=== PATIENT | male | born 1950 | race Caucasian/White ===

== ENCOUNTER 2018-03-28 14:53 | Inpatient (IN) | payer OTHER ==
[2018-03-29] MEDS ORDERED: ACETAMINOPHEN 325 MG TAB PO PRN (15:30)
[2018-03-29] MEDS ORDERED: POLYETHYLENE GLYCOL 3350 17 GM PKT PO PRN (15:30)
[2018-03-29] MEDS ORDERED: SENNOSIDES 17.6 MG/10 ML UDL PO PRN (15:30)
[2018-03-29] MEDS ORDERED: ONDANSETRON 4 MG/2 ML VIAL IV PRN (15:51)
[2018-03-29] MEDS ORDERED: CEPACOL LOZENGE PO PRN (15:51)
[2018-03-29] MEDS ORDERED: LORAZEPAM PO PRN (15:51)
[2018-03-29] MEDS ORDERED: DEXAMETHASONE 4 MG/ML VIAL PO SCH (16:00)
[2018-03-29] MEDS ORDERED: HYDROCODONE/APAP 5/325 TAB PO PRN (16:00)
[2018-03-29] MEDS ORDERED: LORazepam 1 MG TAB PO PRN (16:01)
[2018-03-29] MEDS: DEXAMETHASONE 4 MG TAB PO SCH ×2 (16:59→21:00)
[2018-03-29] MEDS: FAMOTIDINE 20 MG TAB PO SCH (20:51)
[2018-03-29] MEDS: ENALAPRIL MALEATE 5 MG TAB PO SCH (20:51)
[2018-03-29] MEDS: levETIRAcetam 500 MG TAB PO SCH (20:51)
[2018-03-29] MEDS: HEPARIN 5,000 UNIT/0.5 ML INJ SC SCH (20:52)
[2018-03-29] MEDS ORDERED: SENNOSIDES/DOCUSATE SODIUM TAB PO SCH (21:00)
[2018-03-29] MEDS ORDERED: ENALAPRIL MALEATE 10 MG TAB PO SCH (21:00)
[2018-03-30] MEDS: DEXAMETHASONE 4 MG TAB PO SCH ×4 (04:44→21:36)
[2018-03-30] MEDS: POLYETHYLENE GLYCOL 3350 17 GM PKT PO SCH (08:08)
[2018-03-30] MEDS: levETIRAcetam 500 MG TAB PO SCH ×2 (08:10→21:11)
[2018-03-30] MEDS: FAMOTIDINE 20 MG TAB PO SCH ×2 (08:10→21:11)
[2018-03-30] MEDS: ENALAPRIL MALEATE 5 MG TAB PO SCH ×2 (08:10→21:11)
[2018-03-30] MEDS: HEPARIN 5,000 UNIT/0.5 ML INJ SC SCH ×2 (10:32→21:16)
--- NOTE | 2018-03-30 10:36 | PDOREHIP ---
Admission [facility] - Admission - 3 Day Assessment Period Admission Date/Day 1: 03/29/18 Day 2: 03/30/18 Day 3: 03/31/18 - Active Diagnoses Comorbidities and Co-existing Conditions at Admission: 20274. None of the Above - Skin Conditions Unhealed Pressure Ulcer (1 or more/Stage 1 or >)-Admission: 0. No
[2018-03-30 11:19] LABS: PLATELET COUNT 267 10^3/uL (150-400)
--- NOTE | 2018-03-30 12:49 | GHP ---
[f rep st] HISTORY AND PHYSICAL DATE OF ADMISSION: 03/29/2018 REFERRING FACILITY: [facility]. REFERRING PHYSICIAN: Ken Ocampo MD CONSULTANTS: Oncology, Medicine IMPAIRMENT GROUP: 2.1. DATE OF ONSET: 03/20/2018. INPATIENT REHABILITATION HISTORY AND PHYSICAL AND POSTADMISSION PHYSICAL EVALUATION REHABILITATION DIAGNOSIS: Metastatic Melanoma to the brain, Intraparenchymal hemorrhage . ETIOLOGIC DIAGNOSIS: Nontraumatic brain dysfunction. DATE OF SURGERY: 03/25/2018. HISTORY OF PRESENT ILLNESS: The patient is a 67-year-old male who presented to the emergency room on , 03/20/2018, with concern of slurred speech and drooling. He had noted that he had started having some abnormal speech and slurring over the night before. He went to bed and slept well, but upon waking up and going to the bathroom the next morning, he did notice that he did have right facial droop. He did not have any other associated symptoms such as pain or headache. He also did note that his right hand was more clumsy than it had been before, but just slightly. He did go to work that next morning, and secondary to his ongoing dysarthria as well as mild aphasia and the right-sided facial droop, his coworkers did urge him to go to the emergency department. He did report to the emergency department on 03/20/2018 and was evaluated including a CT of the head, which did show a 2.8 x 2.6 mass in the left frontal lobe with surrounding edema and surrounding parenchymal hemorrhage overlying that location. The patient also had an MRI of the brain with and without contrast, which demonstrated a small hemorrhagic rim-enhancing left frontal lobe lesion compatible with metastasis. A larger left frontal lobe intracerebral hematoma without intralesional enhancement, which is presumably the scarring underlying small metastasis, associated moderate adjacent vasogenic edema with a small amount of adjacent subarachnoid hemorrhage. Very mild supratentorial white matter disease, which is presumably chronic microvascular ischemic gliosis. The patient also did have, on the same day, a CTA of the head and neck, which did demonstrate a high grade stenosis versus occlusion of the proximal right vertebral artery with the remainder of the right vertebral artery widely patent. The bilateral carotid bulb calcification without significant stenosis. No intracranial vascular occlusions. There was, as noted before, a left frontal lobe mass. The patient was taken to the ICU and monitored in this time period. He did not have significant medical complications during this timeframe and was consulted by Dr. Jaron Ocampo, neurosurgeon. A stroke alert was called in at his initial evaluation, although at this time unclear to understand if this was secondary to a true stroke versus secondary to the lesion that he has in the brain. Of note, he did notice that in the last 1 month, in further discussion, that potentially he had slight difficulty with coordination, specifically more in his right hand and potentially in his right foot, although this was not happening at the time of admission. He does have a significant smoking history as well as baseline hypertension. Neurosurgery did evaluate him and did start him on Keppra as well as dexamethasone to provide support for the intracranial edema that he did have. He was also seen by Medicine, who completed a metastatic workup including a CT of the chest, abdomen, and pelvis and was found to have a lung lesion that they were unable to biopsy. Given the availability of the cranial lesion, Oncology, who was also consulted, recommended biopsy of the cranial lesion. He was taken to the OR on 03/25 for evacuation of the clot, biopsy and resection of the suspected metastatic melanoma. He tolerated the procedure well. Pathology finalized consistent with necrotic metastatic melanoma. He has an additional small 2nd intracranial lesion as well that was not resected given its very small size. Postoperatively, he was placed in the ICU for close monitoring, and postop CT showed expected postop changes. He was in good condition and did have some typical postoperative brain swelling resulting in a slightly weak and clumsy right hand that seemed better on postoperative day 4 and currently leaving him on high-dose steroids. He was transferred out of the ICU to the floor and was seen by PT and OT and cleared for discharge to our facility on 03/29. He was okay for DVT prophylaxis. He will remain on Keppra b.i.d. until he is followed up. He will be on a slow 2-week Decadron taper to off. He will also follow up 2 weeks postop for wound check and staple removal. He will need an Oncology followup as well. STUDIES AND LABS: The patient did demonstrate a pathology consistent with metastatic melanoma with regard to the brain biopsy. He did have initial normal labs including a normal white blood cell count, a normal hemoglobin and hematocrit, a normal platelet as well as a normal BMP as well as normal coag values PRECAUTIONS: Aspiration, fall risk, seizure. ACTIVE COMORBIDITIES: Tier 3 right-sided hemiparesis. PAST MEDICAL HISTORY: 1. Hypertension. 2. Melanoma, status post resection of upper back via Mohs surgery 1 year ago. 3. Basal cell carcinoma excision from frontal scalp. 4. Hypercholesterolemia. PAST SURGICAL HISTORY: As mentioned above. Also inclusive of a left frontal craniotomy status post evacuation of clot, resection of suspected metastatic melanoma. PREHOSPITAL MEDICATIONS: 1. Aspirin. 2. Avalide 300/12.5 mg. 3. Zantac. 4. Multivitamin. ALLERGIES: Codeine. ADMISSION MEDICATIONS: 1. Tylenol 650 mg p.o. q.4 hours p.r.n. pain or fever. 2. Ardara 5/325 mg 1 tablet p.o. q.5 hours p.r.n. pain. 3. Librium 10 mg p.o. q.h.s. p.r.n. anxiety or alcohol withdrawal. 4. Decadron 4 mg p.o. q.6 hours and will continue to taper this over the next 2 weeks until off. 5. Enalapril 10 mg p.o. b.i.d. 6. Famotidine 20 mg p.o. b.i.d. 7. Heparin subcutaneous injection 5000 units q.12 hours. 8. Keppra 500 mg p.o. b.i.d. 9. Ativan 1 to 2 mg p.o. q.4 hours p.r.n. anxiety. 10. Zofran 4 mg IV q.4 hours p.r.n. nausea. 11. MiraLAX 17 g p.o. daily p.r.n. constipation. 12. MiraLAX 17 g p.o. daily scheduled. 13. Senna 1 to 2 tablets p.o. b.i.d. p.r.n. constipation. 14. Cepacol lozenge 1 tablet p.o. q.15 minutes p.r.n. sore throat. PSYCHOSOCIAL HISTORY: The patient was living alone. He reports that his children are . He was working full-time. He did smoke at least 3/4 to 1 pack of cigarettes per day and did drink several vodka tonics daily. FAMILY HISTORY: Per patient, no significant family history. REVIEW OF SYSTEMS: Negative other than what has been mentioned already in the HPI. PHYSICAL EXAMINATION: VITAL SIGNS: Blood pressure 156/94, temperature 36.6 degrees Celsius, heart rate 42, respiratory rate 14, 96% on room air. GENERAL: The patient appears as a healthy male. He is in no apparent distress on admission evaluation. HEENT: The patient does have obvious right-sided facial droop. He also does struggle with achieving full right-sided lateral gaze. His peripheral vision is intact to confrontation. He also has a slightly right- sided deviation of the tongue. His mucous membranes are moist. He has good range of motion with his neck. CV: Bradycardic although patient is asymptomatic, and per evaluation on the outside, from the notes did appear to also have bradycardia. CHEST: Clear to auscultation bilaterally. ABDOMEN: Soft, nontender, nondistended. PSYCH: Euthymic. SKIN: No obvious areas of skin breakdown upon evaluation. MSK: No pain to palpation over the joints and patient with full range of motion. NEURO: Patient is alert and oriented. He is able to carry on a basic conversation although does have obvious dysarthria and potentially some baseline aphasia. He does have right facial weakness with difficulty elevating the right side of his face during smile and puffing out his cheeks. He does have right upper extremity weakness more distal than he does proximal as well as dis-coordination through the fingers as well as the right heel to nation. Right lower extremity seems to have 4+/5 to 5/5 strength. RUE 4/5 delts, 4+/5 biceps, 4+/5 biceps, 4/5 we, 2/5 finger abduction, 4-/5 finger flexion. Extemities - no tenderness to palpation over bilateral calves - no associated swelling nor redness PRIOR LEVEL OF FUNCTIONING: The patient was functioning independently including driving as well as working full-time. CURRENT LEVEL OF FUNCTION: The patient is requiring contact guard to min assist for transfers both to the toilet as well as shower tub transfers. He is ambulating although still requiring contact guard to min assist with a front- wheeled walker. He is demonstrating dysarthric communication as well as mild cognitive deficit. The patient has demonstrated impulsiveness and safety deficits, specifically with functional mobility. He also is requiring contact guard assist for his ADLs including grooming. He has, up until now, remained continent with his bowel and bladder and we will continue to assess. There are no current functional changes from this preadmission screen based on the current exam. The patient is expected to achieve independence with eating, grooming, dressing, and bathing. Also independence with bed mobility, transfers , and ambulation with a least restrictive device on all level and unlevel surfaces. He will also demonstrate decreased impulsivity and be safe to negotiate the environment with our goal to discharge back to home with supportive services if needed. IMPRESSION: The patient is a 67-year-old male who was found to have a metastatic melanoma brain lesion, status post resection although did demonstrate other smaller lesions that were unable to be resected. He also did have associated postoperative changes such as swelling as well as intraparenchymal hemorrhage secondary to the lesion. He lives alone and thus will benefit from an interdisciplinary rehabilitation team approach to provide ongoing benefit both from Speech, PT, OT, who will see the patient for 60 minutes per day for each discipline on 5-7 days per week with his expected duration of stay around 10-14 days. His goal is to return home with supportive services. It is expected that after discharge he will continue to benefit from outpatient occupational and speech therapy in the immediate although unclear the amount of needs he will have in the future given this metastatic presentation. PLAN: 1. The patient does have reduced balance, mobility as well as activities of daily living following the resection of his metastatic melanoma lesion in his left frontal area. He will benefit from intervention with PT and OT to optimize his mobility and functional status towards discharge home at a modified to independent level. 2. Dysarthria. The patient will benefit from speech therapy evaluation for both his language as well as his cognitive function. He hopes to return back to work, although this will likely be something to be evaluated in the future, although would be able to return back home safely is the discharge goal for now. 3. Dysphagia. The patient is currently on a modified diet. He will continue working with Speech Therapy for dietary upgrades in order to achieve a minimal level of restrictions at the time of discharge. 4. Somatic pain. The patient with some pain status post resection. He currently has Tylenol as well as Ardara on board for any pain that he might have. We will continue to monitor and adjust pain medications according to the pain that he represents. 5. Hypertension. The patient does have a history of hypertension. At home, he was on multiple medications, although coming to our hospital only on enalapril. We will continue his current dosing and titrate other medications as indicated. Would not want him going too high given the hemorrhagic concerns specifically as he already did have some intraparenchymal hemorrhage as a result of this lesion. Currently riding in a decent range at 130-140s, although again we will continue to titrate medications in order to have a little bit better control of his hypertension. 6. Bowel and bladder. The patient is reported to be currently continent. We will continue to monitor and potentially evaluate for bladder evacuation to assure that patient is not having any evidence of retention or other symptoms consistent with a neurogenic bowel or bladder. 7. Nicotine dependence. The patient was smoking 3/4 to 1 pack per day. At current, he does not have a nicotine replacement plan in place. We will continue to work with our correctional counselor/case manager as well as our team with regard to best management of his nicotine consumption in efforts to provide supportive care during his hospitalization. 8. History of significant alcohol intake. The patient was on librium during his acute hospital stay. He has not triggered use of this for several days. We will continue to monitor and again work with our correctional counselor/case manager and others who can provide supportive care in light of his new brain lesions and to avoid ongoing significant alcohol intake. 9. Prophylaxis. The patient is at a moderate risk for clots secondary to his recent surgical interventions as well as his cancer diagnosis. He will be quite mobile with our therapist and thus we will continue on the current dosing as prescribed from his neurosurgeon of heparin 5000 units b.i.d. We will continue to monitor for any evidence of bleeding, especially parenchymal hemorrhaging, although less likely given the timeframe from the recent surgical intervention. 10. Cerebral edema (perisurgical) The patient is currently on a decadron taper dose. He is currently on 4 mg q.i.d. although this will transition over to 4 mg t.i.d. x3 days and then 4 mg b.i.d. x2 days and then 2 mg b.i.d. x2 days and then 2 mg q.a.m. x3 days at which time it is completely stopped. This will be right around the time he is supposed to follow up with Dr. Ocampo for his suture removal in Dr. Ocampo's outpatient clinic. 11. Bradycardia - Pt currently asymptomatic - Per review of outside chart was also bradycardic to the 40's. Did call over on 03/30 and floor RN reports an EKG was completed showing sinus bradycardia with concern of RBBB. Will repeat EKG in the morning and also get thyroid studies. Pt unaware of this diagnosis now or from before. Will monitor closely. Will engage pharmacy but haven't identified obvious medications that would be contributing. FOLLOWUP: The patient will need follow up with Dr. Ocampo. As per their documentation, should be in around 2 weeks' timeframe for both postsurgical evaluation as well as staple removal. He will also need follow up with an oncologist, and at this point, it is unclear if a referral has been sent, although patient was known to have melanoma from prior as he did have a Mohs surgery for removal 1 year ago. He might likely already have oncological resources. We will need to explore this further to assure that patient does have the right resources at the time of discharge. He will also need to follow up with his primary care provider for ongoing medical support as well as support of his hypertension at time of discharge. /[id number]/MODL MTDD
[2018-03-31] MEDS: levETIRAcetam 500 MG TAB PO SCH ×2 (08:34→20:18)
[2018-03-31] MEDS: FAMOTIDINE 20 MG TAB PO SCH ×2 (08:34→20:18)
[2018-03-31] MEDS: DEXAMETHASONE 4 MG TAB PO SCH ×3 (08:34→21:25)
[2018-03-31] MEDS: HEPARIN 5,000 UNIT/0.5 ML INJ SC SCH ×2 (08:35→20:18)
[2018-03-31] MEDS: ENALAPRIL MALEATE 5 MG TAB PO SCH ×2 (08:35→20:18)
[2018-03-31] MEDS: POLYETHYLENE GLYCOL 3350 17 GM PKT PO SCH (08:41)
--- NOTE | 2018-03-31 12:07 | SOAPPROG ---
SOAP Progress Note Assessment/Plan: Assessment: 67-year-old man with metastatic melanoma to brain, status post craniotomy and excision of left frontal lobe mass on 03/25/2018. * Deficits to balance mobility and activities of daily living. PT and OT to optimize his mobility and functional status towards discharge home at the modified independent level. * Dysarthria. CAR VARNISHER to address articulation of speech as well as cognitive function. Hope to return to work. * Dysphagia. Continue dysphagia 2 diet with thin liquids. Continue CAR VARNISHER. * Bradycardia. This is asymptomatic. She is not on any medications that promote bradycardia. EKG reportedly showed sinus bradycardia in the hospital. Repeat EKG is pending today, 03/31/2018. * Pain management. Denies pain currently. Not using hydrocodone or acetaminophen. * Jenny surgical cerebral edema. Continue dexamethasone taper for a total of 12 days. * Smoking history. He is not on next during replacement and currently denies craving for tobacco. * History of alcohol use disorder. He may need support upon discharge to reduce the likelihood of relapse. * Concern regarding dyslipidemia. Get labs from his primary care provider. Will have further discussion regarding his risk for coronary artery disease. May not make a decision regarding statin use until he knows more about his prognosis with metastatic melanoma. * Prophylaxis. He is at elevated risk for DVT due to solid tumor and reduced mobility. Continue heparin 5000 units subcutaneous three times daily until his mobility is considerably improved. Follow-up. He will see Dr. Cade, neurosurgeon, for postsurgical evaluation and staple removal approximately 2 weeks post surgery or approximately 2017. He will need follow-up with Oncology. His primary care provider is Dr. Henry Hess in [place]. 03/31/18 12:07 Subjective: No complaints. Slept well. Says he has no symptoms from his slow heart rate. Not in pain. Denies tobacco craving. Objective: Vital Signs Temp Pulse Resp BP Pulse Ox 36.8 C 40 L 17 146/81 H 97 03/31/18 08:00 03/31/18 08:00 03/31/18 08:00 03/31/18 08:00 03/31/18 08:00 Laboratory Results 03/30/18 06:00 03/30/18 06:00 03/30/18 03/31/18 04/01/18 05:59 05:59 05:59 Intake Total 250 1010 360 Output Total 023 8534 150 Balance -625 -115 210 Physical Exam - Physical Exam General Appearance: WD/WN, alert, no apparent distress Respiratory: normal breath sounds, No crackles, No rhonchi, No wheezing Cardiac/Chest: regular rate, rhythm, edema (1+ bilateral pretibial), bradycardia , No diastolic murmur, No systolic murmur Skin: normal color, warm/dry (Incision with sutures, well-approximated, no drainage, no erythema.) Extremities: No calf tenderness Neuro/Psych: alert, normal mood/affect, oriented x 3, facial droop, motor weakness (Right hand.), speech abnormalities (Moderate dysarthria.) ICD10 Worksheet Patient Problems: Problems Problem Status Onset Brain tumor Acute History of basal cell carcinoma Acute History of basal cell carcinoma Acute Hypercholesteremia Acute Hypertension Acute Intraparenchymal hematoma of brain Acute Melanoma Acute
--- NOTE | 2018-03-31 16:09 | CPEKG ---
Heart Rate: 44 RR Interval: 1364 P-R Interval: 128 QRSD Interval: 142 QT Interval: 508 QTC Interval: 435 P [place]: 47 QRS [place]: 72 T Wave [place]: 56 EKG Severity - ABNORMAL ECG - EKG Impression: SINUS BRADYCARDIA EKG Impression: RIGHT BUNDLE BRANCH BLOCK Electronically Signed By: Amrik Cummings 01-Apr-2018 11:14:24
[2018-04-01] MEDS: levETIRAcetam 500 MG TAB PO SCH ×2 (09:48→21:58)
[2018-04-01] MEDS: FAMOTIDINE 20 MG TAB PO SCH ×2 (09:48→21:58)
[2018-04-01] MEDS: HEPARIN 5,000 UNIT/0.5 ML INJ SC SCH (09:49)
[2018-04-01] MEDS: DEXAMETHASONE 4 MG TAB PO SCH ×3 (09:49→21:58)
[2018-04-01] MEDS: ENALAPRIL MALEATE 5 MG TAB PO SCH ×2 (09:49→21:58)
[2018-04-01] MEDS: POLYETHYLENE GLYCOL 3350 17 GM PKT PO SCH (09:49)
--- NOTE | 2018-04-01 14:30 | SOAPPROG ---
SOAP Progress Note Assessment/Plan: Assessment: 67-year-old man with metastatic melanoma to brain, status post craniotomy and excision of left frontal lobe mass on 03/25/2018. * Deficits to balance, mobility and activities of daily living. * Walking 300' or more with trekking pole, SBA. Increasingly independent with ADLs. * Continue PT and OT to optimize his mobility and functional status towards discharge home at the modified independent level. * Dysarthria. ECOSYSTEM ECOLOGY PROFESSOR to address articulation of speech as well as cognitive function. Hope to return to work. * Dysphagia. Continue dysphagia 3 diet with thin liquids. Continue ECOSYSTEM ECOLOGY PROFESSOR. * Bradycardia. This is asymptomatic. He is not on any medications that promote bradycardia. EKG reportedly showed sinus bradycardia in the hospital. Repeat EKG 03/31/2018 with sinus bradycardia and RBBB. TSH and free T4 wnl. * Discussed with scalehouse attendant Dr. Washburn, 04/01/2018. He advises no further evaluation or treatment at present. * Dyslipidemia. Hypertensive smoker. 10 year cardiovascular risk is 24%. Should be on moderate to high intensity statin. * Will start aspirin 81 mg q.day on 04/02/2018 as heparin is discontinuing. * Patient will discuss whether purse to proceed with statin therapy with his primary care doctor after discharge.. * Pain management. Denies pain currently. Not using hydrocodone or acetaminophen. * Jenny surgical cerebral edema. Continue dexamethasone taper for a total of 12 days, through 04/09/2018. * Smoking history. He is not on next during replacement and currently denies craving for tobacco. * History of alcohol use disorder. He may need support upon discharge to reduce the likelihood of relapse. * Concern regarding dyslipidemia. Get labs from his primary care provider. Will have further discussion regarding his risk for coronary artery disease. May not make a decision regarding statin use until he knows more about his prognosis with metastatic melanoma. * Prophylaxis. Mobility is much improved. Will discontinue subcutaneous heparin 04/01/2018. Follow-up. He will see Dr. Cade, neurosurgeon, for postsurgical evaluation and staple removal approximately 2 weeks post surgery or approximately 2017. He will need follow-up with Oncology. His primary care provider is Dr. Henry Hess in [place]. 04/01/18 16:02 Subjective: Denies any symptoms of bradycardia. Denies pain, headache, vision change, nausea or vomiting. Slept very well. Reports poor coordination of the right hand. Otherwise without complaints. Objective: Vital Signs Temp Pulse Resp BP Pulse Ox 36.7 C 40 L 15 117/60 96 04/01/18 05:52 04/01/18 05:52 04/01/18 05:52 04/01/18 09:49 04/01/18 05:52 Laboratory Results 03/30/18 06:00 03/30/18 06:00 03/31/18 04/01/18 04/02/18 05:59 05:59 05:59 Intake Total 1010 1130 510 Output Total 1125 1750 250 Balance -115 -620 260 - Time Spent With Patient Time Spent With Patient: Greater than 35 min floor time today, including record review regarding prior EKG and lipid panel done per primary care provider, phone discussion with scalehouse attendant Dr. Washburn, and counseling patient. Physical Exam - Physical Exam General Appearance: WD/WN, alert, no apparent distress Respiratory: normal breath sounds, No crackles, No rhonchi, No wheezing Cardiac/Chest: regular rate, rhythm, tachycardia, No edema, No diastolic murmur , No systolic murmur Skin: normal color, warm/dry Neuro/Psych: alert, normal mood/affect, oriented x 3, facial droop (Right-sided) , motor weakness (Right upper extremity ataxia.), speech abnormalities (Mild dysarthria) ICD10 Worksheet Patient Problems: Problems Problem Status Onset Brain tumor Acute History of basal cell carcinoma Acute History of basal cell carcinoma Acute Hypercholesteremia Acute Hypertension Acute Intraparenchymal hematoma of brain Acute Melanoma Acute
[2018-04-02] MEDS: ASPIRIN EC 81 MG TAB PO SCH (08:31)
[2018-04-02] MEDS: ENALAPRIL MALEATE 5 MG TAB PO SCH (08:32)
[2018-04-02] MEDS: POLYETHYLENE GLYCOL 3350 17 GM PKT PO SCH (08:32)
[2018-04-02] MEDS: levETIRAcetam 500 MG TAB PO SCH ×2 (08:32→21:55)
[2018-04-02] MEDS: DEXAMETHASONE 4 MG TAB PO SCH ×3 (08:32→21:55)
[2018-04-02] MEDS: FAMOTIDINE 20 MG TAB PO SCH ×2 (08:32→21:55)
[2018-04-02] MEDS ORDERED: ENALAPRIL MALEATE 10 MG TAB PO ONE (09:18)
[2018-04-02] MEDS: ENALAPRIL MALEATE 5 MG TAB PO ONE ×2 (10:37→10:48)
--- NOTE | 2018-04-02 11:57 | SOAPPROG ---
SOAP Progress Note Assessment/Plan: Assessment: 67-year-old man with metastatic melanoma to brain, status post craniotomy and excision of left frontal lobe mass on 03/25/2018. * Deficits to balance, mobility and activities of daily living. * Initial functional independence measure 97 on 04/02/2018. Has been independent in his room. Advancing today, 04/02/2018 to independent on the unit , using a tracking pole. Continues to have right upper extremity weakness and a right hemineglect; advised to not drive. Scored 51/56 on the [employer] balance inventory. Independent with activities of daily living. OT focusing on coordination and dexterity of the right hand. * Continue PT and OT to optimize his mobility and functional status towards discharge home at the modified independent level. * Dysarthria, dysphagia. Due to right facial weakness. Continue dysphagia 3 diet with thin liquids. Continue [employer]. * Cognitive impairment, mild, executive function deficit. Continue [employer]. * Bradycardia. This is asymptomatic. He is not on any medications that promote bradycardia. EKG reportedly showed sinus bradycardia in the hospital. Repeat EKG 03/31/2018 with sinus bradycardia and RBBB. TSH and free T4 wnl. * Discussed with finisher denture Dr. Washburn, 04/01/2018. He advises no further evaluation or treatment at present. * Dyslipidemia. Hypertensive smoker. 10 year cardiovascular risk is 24%. Should be on moderate to high intensity statin. * Will start aspirin 81 mg q.day on 04/02/2018 as heparin is discontinuing. * Patient will discuss whether purse to proceed with statin therapy with his primary care doctor after discharge. * Pain management. Denies pain currently. Not using hydrocodone or acetaminophen. * Jenny surgical cerebral edema. Continue dexamethasone taper for a total of 12 days, through 04/09/2018. * Smoking history. He is not on nicotine replacement and currently denies craving for tobacco. * History of alcohol use disorder. He may need support upon discharge to reduce the likelihood of relapse. * Prophylaxis. Mobility is much improved. Discontinued subcutaneous heparin . Follow-up. He will see Dr. Cade, neurosurgeon, for postsurgical evaluation and staple removal approximately 2 weeks post surgery or approximately 2017. He will need follow-up with Oncology. His primary care provider is Dr. Henry Hess in [place]. Attended staffing, 15 min. Discussed with case management, dietitian, nursing, PT, OT, [employer]. Plans to go home alone. Discharge date set for 04/04/2018. Will have home versus outpatient OT, [employer] and PT. OT advises pre driving screen before returning to driving. 04/02/18 11:57 Subjective: No complaints. Feels his function of his right hand is improving. Not in pain , sleeping well. No cough or shortness of breath, no fevers or chills. Objective: Vital Signs Temp Pulse Resp BP Pulse Ox 36.4 C 44 L 18 153/93 H 97 04/02/18 07:59 04/02/18 07:59 04/02/18 07:59 04/02/18 08:32 04/02/18 07:59 Laboratory Results 03/30/18 06:00 03/30/18 06:00 04/01/18 04/02/18 04/03/18 05:59 05:59 05:59 Intake Total 1130 750 120 Output Total 1750 950 Balance -620 -200 120 - Time Spent With Patient Time Spent With Patient: Greater than 35 min floor time today, including more than 50% of time in coordination of care during staffing meeting, and counseling patient. Physical Exam - Physical Exam General Appearance: WD/WN, alert, no apparent distress Respiratory: No respiratory distress, No accessory muscle use Skin: normal color, warm/dry Neuro/Psych: alert, normal mood/affect, oriented x 3, abnormal gait (Wide-based , step through pattern, normal pace, with trekking pole), facial droop (Right), motor weakness (Right upper extremity ataxia.), speech abnormalities (Mild dysarthria) ICD10 Worksheet Patient Problems: Problems Problem Status Onset Brain tumor Acute History of basal cell carcinoma Acute History of basal cell carcinoma Acute Hypercholesteremia Acute Hypertension Acute Intraparenchymal hematoma of brain Acute Melanoma Acute
[2018-04-02] MEDS ORDERED: ENALAPRIL MALEATE 10 MG TAB PO SCH (21:00)
[2018-04-02] MEDS ORDERED: ENALAPRIL MALEATE 5 MG TAB PO SCH (21:00)
[2018-04-03] MEDS: levETIRAcetam 500 MG TAB PO SCH ×2 (08:06→20:36)
[2018-04-03] MEDS: ASPIRIN EC 81 MG TAB PO SCH (08:06)
[2018-04-03] MEDS: FAMOTIDINE 20 MG TAB PO SCH ×2 (08:07→20:36)
[2018-04-03] MEDS: DEXAMETHASONE 4 MG TAB PO SCH ×2 (08:07→20:35)
[2018-04-03] MEDS: POLYETHYLENE GLYCOL 3350 17 GM PKT PO SCH (08:08)
[2018-04-03] MEDS ORDERED: ENALAPRIL MALEATE 5 MG TAB PO SCH (09:00)
[2018-04-03] MEDS: ENALAPRIL MALEATE 10 MG TAB PO SCH (10:09)
--- NOTE | 2018-04-03 10:27 | PDOREHIP ---
Admission [facility] - Admission - 3 Day Assessment Period Admission Date/Day 1: 03/29/18 Day 2: 03/30/18 Day 3: 03/31/18 Discharge [facility] - Discharge - 3 Day Assessment Period 2 Days Prior to Anticipated Discharge Date: 04/02/18 1 Day Prior to Anticipated Discharge Date: 04/03/18 Anticipated Discharge Date: 04/04/18 - Discharge Skin Conditions Unhealed Pressure Ulcer (1 or more/Stage 1 or >)-Discharge: 0. No
--- NOTE | 2018-04-03 14:21 | SOAPPROG ---
HELIO Progress Note Assessment/Plan: 67-year-old male status post craniotomy and resection of melanoma. Today's update: Working with the team on discharge preparation today, a total of 40 min was spent on the floor in the care of the patient, the majority of which was spent counseling coordination of care regarding discharge planning. Overall he is doing well and performing at a modified independence level anticipated for discharge. To clarified, he will not be on any anticoagulants on discharge. He will be following up with Dr. Ocampo of Neurosurgery, verified with him today that he will be removing the jazmine at the follow-up appointment. His dysarthria and dysphagia have improved significantly. Additional issues reviewed without change today include asymptomatic bradycardia , dyslipidemia, pain management, michael surgical cerebral edema and dexamethasone taper, smoking history, alcohol use disorder, DVT prophylaxis. He will need to follow up with Neurosurgery, primary care, Oncology. Plan to discharge tomorrow. 04/03/18 14:17 Subjective: Chief complaint: Discharge planning No acute events overnight. Patient denies any new shortness of breath or chest pain, no new numbness, tingling, or weakness. Therapy going well, he is at a modified independent level for discharge. Clarified with Dr. Armen soto the plan for staple removal after discharge at the clinic appointment. Worked with social work on appropriate discharge planning. Therapy noted that the patient said to him today that he is planning to discharge on warfarin, clarified in the record that he will not be on any anticoagulation. Objective: Vital Signs Temp Pulse Resp BP Pulse Ox 36.7 C 47 L 22 H 152/83 H 97 04/03/18 06:18 04/03/18 06:18 04/03/18 06:18 04/03/18 06:18 04/03/18 06:18 Laboratory Results 03/30/18 06:00 03/30/18 06:00 04/02/18 04/03/18 04/04/18 05:59 05:59 05:59 Intake Total 750 870 360 Output Total 950 300 Balance -200 570 360 Physical Exam - Physical Exam General Appearance: WD/WN, alert, no apparent distress EENT: No scleral icterus (R), No scleral icterus (L) Respiratory: No respiratory distress, No accessory muscle use Cardiac/Chest: normal peripheral pulses, regular rate, rhythm, No edema Skin: normal color, warm/dry, other (Wound healing well), No cyanosis Extremities: No pedal edema, No swelling Neuro/Psych: alert, normal mood/affect, oriented x 3 ICD10 Worksheet Patient Problems: Problems Problem Status Onset Brain tumor Acute History of basal cell carcinoma Acute History of basal cell carcinoma Acute Hypercholesteremia Acute Hypertension Acute Intraparenchymal hematoma of brain Acute Melanoma Acute
[2018-04-03] MEDS ORDERED: ENALAPRIL MALEATE 10 MG TAB PO SCH (21:00)
[2018-04-04] MEDS: FAMOTIDINE 20 MG TAB PO SCH (09:42)
[2018-04-04] MEDS: DEXAMETHASONE 4 MG TAB PO SCH (09:42)
[2018-04-04] MEDS: levETIRAcetam 500 MG TAB PO SCH (09:42)
[2018-04-04] MEDS: ASPIRIN EC 81 MG TAB PO SCH (09:42)
[2018-04-04] MEDS: POLYETHYLENE GLYCOL 3350 17 GM PKT PO SCH (09:44)
[2018-04-04] MEDS ORDERED: ENALAPRIL MALEATE 5 MG TAB PO ONE ×2 (10:00)
[2018-04-04 10:02] VITALS: BP 104/67
[2018-04-04] MEDS: ENALAPRIL MALEATE 10 MG TAB PO SCH (10:33)
--- NOTE | 2018-04-04 16:44 | GDS ---
[f rep st] DISCHARGE SUMMARY ADMISSION DIAGNOSES: Debility, status post craniotomy and excision of metastatic melanoma. DISCHARGE DIAGNOSES: Debility, status post craniotomy and excision of metastatic melanoma. Other discharge diagnoses: Bradycardia, dyslipidemia, history of alcohol use disorder. COMPLICATIONS: None. CONSULTATIONS: None. PROCEDURES: None. HISTORY/HOSPITAL COURSE: This patient was admitted from [facility]. He had presented there on 03/20/2018 with slurred speech and drooling. He was found to have a brain mass with surrounding edema and surrounding parenchymal hemorrhage, consistent with metastatic melanoma. He underwent craniotomy and evacuation/excision of mass and associated hemorrhage. 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 He was treated with dexamethasone, as well as levetiracetam to reduce brain edema and for seizure prophylaxis. He was medically stabilized and came to inpatient rehabilitation. He did well in rehabilitation. His initial functional independence measure was 97 on 04/02/2018, which is consistent with assisted living level of function. He was made independent in his room and on the unit. He used a trekking pole. He continues to have right upper extremity weakness and right hemineglect. He was independent with activities of daily living. He had dysphagia but was ultimately advanced to a regular diet with thin liquids. He was found to have cognitive impairment, which was mild. Most prominent was an executive function deficit. He had bradycardia with heart rate as low as 40. TSH was normal. EKG showed sinus bradycardia. This was discussed with Cardiology, Dr. Washburn, on 2017. As the patient was asymptomatic, and there were no structural heart defects noted. Dr. Washburn advised no further evaluation or treatment. He had a history of dyslipidemia and asked about use of a statin. Lab results were obtained from his primary care provider's office, Dr. Henry Hess. Per by the [place] [employer] [employer] 2017 guidelines , he has a 10-year cardiovascular risk of 24% and should be on a moderate to high intensity statin. He was treated with aspirin 81 mg daily, and he was advised to discuss whether to proceed with statin therapy with his primary care physician after discharge. This would be most appropriately done with understanding of his prognosis given his metastatic melanoma. History of tobacco dependence syndrome, as well as alcohol use disorder. He was not on any nicotine replacement and denied craving for tobacco. He is probably at some risk to relapse with alcohol use after his discharge. CONDITION ON DISCHARGE: Good. DIET: Regular. ACTIVITY: Ad loni, but he is advised to not drive due to his right hemineglect. DISCHARGE MEDICATIONS: 1. Aspirin 81 mg p.o. daily. 2. Dexamethasone taper, to continue through 04/09/2018. 3. Enalapril 20 mg p.o. daily and 10 mg p.o. q.h.s. 4. Famotidine 20 mg p.o. b.i.d. 5. Levetiracetam 500 mg p.o. b.i.d. Issues to be addressed at followup: 1. Functional status: He will have outpatient PT, OT, and [facility] at [facility], which is a short walk from his home. 2. Metastatic melanoma. He will follow up with oncologist, Dr. Jeff Wilson, scheduled for 04/22/2018. 3. Hypertension and cardiac risk. He will follow up with Dr. Henry Hess, his primary care provider, on 04/16/2018. 4. Status post craniotomy. Follow up with neurosurgeon, Dr. Ocampo, on 2017. Copy requested to: Dr. Ocampo /[id number]/MODL MTDD
[2018-04-05] MEDS ORDERED: DEXAMETHASONE 2 MG TAB PO SCH (09:00)
[2018-04-07] MEDS ORDERED: DEXAMETHASONE 2 MG TAB PO SCH (09:00)
== END 2018-04-04 13:34 | disposition home or self-care (01) | DRG 949 ==
LOC: BREH 03-29 14:45
PROVIDERS: ADMIT Internal Medicine; ATTEND Internal Medicine
DX: Z48.811 Encounter for surgical aftercare following surgery on the nervous system (principal); C79.31 Secondary malignant neoplasm of brain; G93.6 Cerebral edema; R13.10 Dysphagia, unspecified; R29.810 Facial weakness; R47.1 Dysarthria and anarthria; F17.210 Nicotine dependence, cigarettes, uncomplicated; I10 Essential (primary) hypertension; E78.00 Pure hypercholesterolemia, unspecified; R00.1 Bradycardia, unspecified; Z85.820 Personal history of malignant melanoma of skin
CPT/HCPCS: 92507-GN; 92508-GN; 92522-GN; 92526-GN; 92610-GN; 97110-GP; 97112-GO; 97112-GP; 97116-GP; 97161-GP; 97166-GO; 97530-GO; 97530-GP; 97535-GO; 97537-GO; J1644